=== PATIENT | male | born 1955 | race African-American/Black ===

== ENCOUNTER 2016-12-09 07:09 | Day surgery (SDC) | payer OTHER ==
[~2016-12-09] VITALS: Ht 177.8 cm; Wt 115.9 kg
[2016-12-09] MEDS ORDERED: SODIUM CHLORIDE 0.9% 1,000 ML IV ONE ×2 (07:13→07:30)
[2016-12-09 07:44] LABS: CALCIUM, TOTAL 7.9 mg/dL (8.8-10.5); CREATININE 3.45 mg/dL (0.60-1.30)
[2016-12-09 07:46] LABS: PROTHROMBIN TIME 10.4 SEC (9.4-11.6)
[2016-12-09] MEDS ORDERED: LISI-662 PO (08:37)
[2016-12-09] MEDS ORDERED: FURO20 PO (08:37)
[2016-12-09] MEDS ORDERED: ATOR40TA28 PO (08:37)
[2016-12-09] MEDS ORDERED: ASPI81 PO (08:37)
[2016-12-09] MEDS ORDERED: AMLO-512 PO (08:37)
[2016-12-09] MEDS ORDERED: INSLAN SQ (08:37)
[2016-12-09] MEDS ORDERED: INSU100V3 SQ (08:37)
[2016-12-09] MEDS ORDERED: MIDAZOLAM HCL 5 MG/ML VIAL ONE (10:43)
[2016-12-09] MEDS ORDERED: FentaNYL CITRATE-PF 100 MCG/2 ML VIAL ONE (10:43)
== END 2016-12-09 13:25 | disposition home or self-care (01) ==
LOC: SDS 07:09
PROVIDERS: ATTEND Internal Medicine Nephrology
DX: N04.9 Nephrotic syndrome with unspecified morphologic changes (principal); E11.22 Type 2 diabetes mellitus with diabetic chronic kidney disease; N18.9 Chronic kidney disease, unspecified; E78.00 Pure hypercholesterolemia, unspecified; Z87.891 Personal history of nicotine dependence; Z90.49 Acquired absence of other specified parts of digestive tract; Z98.890 Other specified postprocedural states; Z86.19 Personal history of other infectious and parasitic diseases
CPT/HCPCS: 36415; 50200; 77012; 80048; 85610; 85730; 88300; 93005; J2250; J3010; J7030; 88305; 88313; 88346; 88348